=== PATIENT | male | born 1960 | race Caucasian/White ===

== ENCOUNTER → 2018-03-24 09:44 | Outpatient (CLI) | payer OTHER, SELFPAY | PROVIDERS: PCP Family Medicine; Visit Provider Family Medicine | DX: Z71.3 Dietary counseling and surveillance (principal); E11.9 Type 2 diabetes mellitus without complications | CPT/HCPCS: 97802 ==

== ENCOUNTER → 2018-04-08 14:42 | Outpatient (POV) | payer OTHER, SELFPAY | DX: Z00.00 Encounter for general adult medical examination without abnormal findings (principal) ==

== ENCOUNTER → 2018-08-10 13:49 | Outpatient (CLI) | payer OTHER, SELFPAY ==
--- NOTE | 2018-08-10 13:56 | XR_ITS ---
XR foot LT min 3V HISTORY: Pain ITS.REASON: PUNCTURE WOUND OF LT FOOT ORDERING PHYSICIAN: Braxton Knott MD PATIENT AGE: 58 years COMPARISON: None FINDINGS: There is some calcification of the plantar aponeurosis. Multiple small well-circumscribed calcific densities are present at the lateral aspect of the cuboid. No radio opaque foreign bodies are evident. No fracture or dislocation. IMPRESSION: No acute finding
== END ==
PROVIDERS: PCP Family Medicine; Visit Provider Family Medicine
DX: S91.332A Puncture wound without foreign body, left foot, initial encounter (principal)
CPT/HCPCS: 73630